=== PATIENT | female | born 1995 | race Caucasian/White ===

== ENCOUNTER 2018-09-15 12:27 | Emergency (ER) | payer BC ==
[~2018-09-15 12:27] MED LIST: ASPI1TAB17 PO; MEDR150D IM
[2018-09-15] MEDS ORDERED: NS(*) 0.9% 1000 ML BAG 1,000 ML IV ONE (12:39)
--- NOTE | 2018-09-15 12:39 | ER Report ---
History and Physical Time Seen By MD: 12:38 Hx. of Stated Complaint: abd pain HPI/ROS CHIEF COMPLAINT: Abdominal pain HISTORY OF PRESENT ILLNESS: 23-year-old female patient presents to emergency room with complaint of abdominal pain. Patient states this started approximately an hour and half prior to arrival. She states it began during intercourse with her significant other. She states the pain is in the "vagina bone". She states she did go to urgent care, was evaluated and referred to the emergency room due to patient needing to have imaging. Patient states she has had some nausea, but that his been normal for her. She denies any vomiting or diarrhea. Patient states that she did have the next been on placed, however did have a revision moved. She states that she has not taken anything to prevent since then. She states that they're not using any type of control. Patient denies any discharge, odor from the vagina. Patient states she is notanything seems to make the pain better or worse. REVIEW OF SYSTEMS: Respiratory: No cough, no dyspnea. Cardiovascular: No chest pain, no palpitations. Gastrointestinal: As noted above Musculoskeletal: No back pain. Allergies: Coded Allergies: No Known Drug Allergies (Unverified , 09/15/18) Home Meds Active Scripts Ondansetron 4 Mg Odt (ONDANSETRON 4 MG ODT) 4 Mg Tab.rapdis, 4 MG PO Q6H PRN for NAUSEA/VOMITING, #20 TAB Prov:ANT MCKINNEY [facility] 09/15/18 Hydrocodone Bit/Acetaminophen (HYDROCODON-ACETAMINOPHEN 5-325) 1 Each Tablet, 1 EACH PO Q4-6H PRN for PAIN, #12 TAB Prov:ANT MCKINNEY [facility] 09/15/18 Discontinued Reported Medications Aspirin/Sod Bicarb/Citric Acid (RICHARD-SELTZER ORIGINAL TAB EFF) 1 Each Tablet.eff, 1 EACH PO DAILY PRN for NAUSEA 07/07/15 Medroxyprogesterone Acet 150 Mg (DEPO-PROVERA 150 MG) 150 Mg/1 Ml Disp.syrin, 150 MG IM q3MO 07/07/15 Past Medical/Surgical History Patient has a past medical history of migraines, depression. Patient denies any surgical history. Reviewed Nurses Notes: Yes Hx Smoking: Yes Smoking Status: Current: Every Day Smoker, Light Tobacco Smoker Exposure to Second Hand Smoke?: No Constitutional Vital Sign - Last 24 Hours 09/15/18 09/15/18 09/15/18 09/15/18 12:35 12:36 13:00 14:00 Temp 97.9 Pulse 78 79 81 Resp 16 B/P (MAP) 121/86 (98) 121/86 118/85 (96) 106/77 (87) Pulse Ox 89 95 96 O2 Delivery Room Air Intake and Output 09/15/18 09/15/18 09/16/18 15:00 23:00 07:00 Intake Total 1000 ml Balance 1000 ml Physical Exam General Appearance: The patient is alert, has no immediate need for airway protection and no current signs of toxicity. Respiratory: Chest is non tender, lungs are clear to auscultation. Cardiac: regular rate and rhythm Gastrointestinal: Abdomen is soft and tender in the right upper quadrant as well as the suprapubic region, no masses, bowel sounds normal. Musculoskeletal: Neck: Neck is supple and non tender. Extremities have full range of motion and are non tender. Skin: No rashes or lesions. DIFFERENTIAL DIAGNOSIS: After history and physical exam differential diagnosis was considered for abdominal pain including but not limited to appendicitis, cholecystitis, gastritis and urinary tract infection. Included in the differential is ectopic , PID. Medical Decision Making Data Points Result Diagram: 09/15/18 1238 09/15/18 1238 Laboratory Hematology Test 09/15/18 12:32 09/15/18 12:38 09/15/18 13:06 Urine Color Yellow Urine Clarity Slightly-cloudy Urine pH 8.0 pH (4.8-9.5) Urine Specific [place] 1.019 Urine Protein Negative mg/dL (NEGATIVE) Urine Glucose (UA) Negative mg/dL (NEGATIVE) Urine Ketones Negative mg/dL (NEGATIVE) Urine Blood Negative (NEGATIVE) Urine Nitrite Negative (NEGATIVE) Urine Bilirubin Negative (NEGATIVE) Urine Urobilinogen Negative mg/dL (0.2-1.9) Urine Leukocyte Esterase Trace (NEGATIVE) Urine RBC 2 /HPF (0-2/HPF) Urine WBC 10 /HPF (0-5/HPF) Urine Squamous Epithelial Cells Many /LPF (</=FEW) Urine Bacteria Few /HPF (NONE-FEW) Urine Mucus Few /HPF (NONE-FEW) Red Blood Count 5.08 M/uL (4.17-5.56) Mean Corpuscular Volume 88.3 fL (80.0-96.0) Mean Corpuscular Hemoglobin 29.4 pg (26.0-33.0) Mean Corpuscular Hemoglobin Concent 33.3 g/dL (32.0-36.0) Red Cell Distribution Width 13.1 % (11.5-14.5) Mean Platelet Volume 8.6 fL (7.2-11.1) Neutrophils (%) (Auto) 62.5 % (39.4-72.5) Lymphocytes (%) (Auto) 28.7 % (17.6-49.6) Monocytes (%) (Auto) 7.1 % (4.1-12.4) Eosinophils (%) (Auto) 1.1 % (0.4-6.7) Basophils (%) (Auto) 0.6 % (0.3-1.4) Nucleated RBC Relative Count (auto) 0.0 /100WBC Neutrophils # (Auto) 5.5 K/uL (2.0-7.4) Lymphocytes # (Auto) 2.5 K/uL (1.3-3.6) Monocytes # (Auto) 0.6 K/uL (0.3-1.0) Eosinophils # (Auto) 0.1 K/uL (0.0-0.5) Basophils # (Auto) 0.1 K/uL (0.0-0.1) Nucleated RBC Absolute Count (auto) 0.00 K/uL Sodium Level 138 mmol/L (137-145) Potassium Level 3.9 mmol/L (3.5-5.0) Chloride Level 103 mmol/L (98-107) Carbon Dioxide Level 25 mmol/L (22-31) Blood Urea Nitrogen 10 mg/dl (7-18) Creatinine 0.70 mg/dl (0.52-1.04) Glomerular Filtration Rate Calc > 60.0 Random Glucose 94 mg/dl (75-110) Calcium Level 9.4 mg/dl (8.4-10.2) Total Bilirubin 1.4 mg/dl (0.2-1.3) Aspartate Amino Transf (AST/SGOT) 22 U/L (0-35) Alanine Aminotransferase (ALT/SGPT) 23 U/L (0-56) Alkaline Phosphatase 65 U/L (0-126) Total Protein 7.7 g/dl (6.3-8.2) Albumin 4.7 g/dl (3.5-5.0) Amylase Level 71 U/L (0-110) Lipase 99 U/L (23-300) Human Chorionic Gonadotropin, Qual Negative (NEGATIVE) Chemistry Test 09/15/18 12:32 09/15/18 12:38 09/15/18 13:06 Urine Color Yellow Urine Clarity Slightly-cloudy Urine pH 8.0 pH (4.8-9.5) Urine Specific [place] 1.019 Urine Protein Negative mg/dL (NEGATIVE) Urine Glucose (UA) Negative mg/dL (NEGATIVE) Urine Ketones Negative mg/dL (NEGATIVE) Urine Blood Negative (NEGATIVE) Urine Nitrite Negative (NEGATIVE) Urine Bilirubin Negative (NEGATIVE) Urine Urobilinogen Negative mg/dL (0.2-1.9) Urine Leukocyte Esterase Trace (NEGATIVE) Urine RBC 2 /HPF (0-2/HPF) Urine WBC 10 /HPF (0-5/HPF) Urine Squamous Epithelial Cells Many /LPF (</=FEW) Urine Bacteria Few /HPF (NONE-FEW) Urine Mucus Few /HPF (NONE-FEW) White Blood Count 8.9 k/uL (4.5-11.0) Red Blood Count 5.08 M/uL (4.17-5.56) Hemoglobin 14.9 g/dL (12.0-16.0) Hematocrit 44.9 % (34.0-47.0) Mean Corpuscular Volume 88.3 fL (80.0-96.0) Mean Corpuscular Hemoglobin 29.4 pg (26.0-33.0) Mean Corpuscular Hemoglobin Concent 33.3 g/dL (32.0-36.0) Red Cell Distribution Width 13.1 % (11.5-14.5) Platelet Count 335 K/uL (150-450) Mean Platelet Volume 8.6 fL (7.2-11.1) Neutrophils (%) (Auto) 62.5 % (39.4-72.5) Lymphocytes (%) (Auto) 28.7 % (17.6-49.6) Monocytes (%) (Auto) 7.1 % (4.1-12.4) Eosinophils (%) (Auto) 1.1 % (0.4-6.7) Basophils (%) (Auto) 0.6 % (0.3-1.4) Nucleated RBC Relative Count (auto) 0.0 /100WBC Neutrophils # (Auto) 5.5 K/uL (2.0-7.4) Lymphocytes # (Auto) 2.5 K/uL (1.3-3.6) Monocytes # (Auto) 0.6 K/uL (0.3-1.0) Eosinophils # (Auto) 0.1 K/uL (0.0-0.5) Basophils # (Auto) 0.1 K/uL (0.0-0.1) Nucleated RBC Absolute Count (auto) 0.00 K/uL Glomerular Filtration Rate Calc > 60.0 Calcium Level 9.4 mg/dl (8.4-10.2) Total Bilirubin 1.4 mg/dl (0.2-1.3) Aspartate Amino Transf (AST/SGOT) 22 U/L (0-35) Alanine Aminotransferase (ALT/SGPT) 23 U/L (0-56) Alkaline Phosphatase 65 U/L (0-126) Total Protein 7.7 g/dl (6.3-8.2) Albumin 4.7 g/dl (3.5-5.0) Amylase Level 71 U/L (0-110) Lipase 99 U/L (23-300) Human Chorionic Gonadotropin, Qual Negative (NEGATIVE) Urinalysis Test 09/15/18 12:32 Urine Color Yellow Urine Clarity Slightly-cloudy Urine pH 8.0 pH (4.8-9.5) Urine Specific [place] 1.019 Urine Protein Negative mg/dL (NEGATIVE) Urine Glucose (UA) Negative mg/dL (NEGATIVE) Urine Ketones Negative mg/dL (NEGATIVE) Urine Blood Negative (NEGATIVE) Urine Nitrite Negative (NEGATIVE) Urine Bilirubin Negative (NEGATIVE) Urine Urobilinogen Negative mg/dL (0.2-1.9) Urine Leukocyte Esterase Trace (NEGATIVE) Urine RBC 2 /HPF (0-2/HPF) Urine WBC 10 /HPF (0-5/HPF) Urine Squamous Epithelial Cells Many /LPF (</=FEW) Urine Bacteria Few /HPF (NONE-FEW) Urine Mucus Few /HPF (NONE-FEW) Microbiology Microbiology Date/Time Source Procedure Growth Status 09/15/18 13:06 Cervical Wet Prep - Final Complete EKG/Imaging Imaging CT ABDOMEN PELVIS W/ CON COMPARISON: None. HISTORY: Right lower quadrant abdominal pain for 3 hours. TECHNIQUE: Axial CT abdomen and pelvis with intravenous contrast. Coronal and sagittal reformats. One of the following dose optimization techniques was utilized in the performance of this exam: automated exposure control; adjustment of the mA and/or kV according to patient size; or use of iterative reconstruction technique. Specific details can be referenced in the facility's radiology CT exam operational policy. CONTRAST: 75 mL of IV Isovue-370. FINDINGS: LUNG BASES: Negative. LIVER: Small region of low density in the liver adjacent to the falciform ligament characteristic in location for perfusional variation versus focal fat deposition. Otherwise unremarkable liver. BILIARY: Negative. SPLEEN: Negative. PANCREAS: Negative. ADRENALS: Negative. KIDNEYS: Negative. Symmetric enhancement without appreciable stones and no evidence of hydronephrosis or pyelonephritis. GI/MESENTERY: Negative. Small appendix without evidence of acute appendicitis. No bowel wall thickening, mass or obstruction. VASCULAR: Negative. LYMPH NODES: Negative. BLADDER: Negative. PELVIC ORGANS: Normal left ovary and uterus. The uterus is deviated towards the left by the enlarged right ovary, overall measuring 3.7 x 6.4 cm including a unilocular cyst measuring 3.4 x 2.7 cm. Small amount of free fluid in the cul-de-sac and adnexa. BONES: Negative. OTHER: Negative. IMPRESSION: 1. No acute bowel pathology. Normal appendix. 2. Enlarged right ovary containing a 3.4 cm cyst. Small amount of free fluid in the right adnexa and cul-de-sac. Report Dictated By: Nick Gamez at 09/15/2018 2:10 PM Report E-Signed By: Nick Gamez at 09/15/2018 2:14 PM ED Course/Re-evaluation ED Course Patient was admitted on exam room, history and physical were obtained. Differential diagnoses were considered. On exam lungs are clear, heart is regular, abdomen is soft in the right upper quadrant, suprapubic region. A pelvic exam was done as described below. An IV was started, a CBC, CMP, urinalysis, hCG were done. Lab results were unremarkable. A wet prep and a CT/GC were done. Blood prep showed large number of white blood cells. A CT scan of the abdomen and pelvis was done secondary to the abdominal pain in the right upper quadrant as well as the suprapubic region. It did show a large right ovarian cyst that is putting pressure on the uterus to the right. The pelvic exam did show some cervical motion tenderness, I believe that is likely secondary to the ovarian cyst which is causing displacement of the uterus. We will go ahead and discharge patient home at this time. She is to take Lantus supply of pain medication to help with pain, she states some Zofran as needed for nausea. She is to follow-up with her operations leader in the next 4-5 days. She is to return to emergency room if condition worsens. Patient verbalized understanding plan. Pelvic exam: The vulva was normal no lesions. The vagina did not have significant discharge. The cervix was closed no bleeding but did have a small amount of drainage. The uterus was normal size and tender. The adnexa had no masses and right sided tenderness. The exam was performed with a manager distribution. Decision to Disposition Date: September 15, 2018 Decision to Disposition Time: 14:31 Depart Departure Latest Vital Signs Vital Signs Date Time Temp Pulse Resp B/P (MAP) Pulse Ox O2 Delivery O2 Flow Rate FiO2 09/15/18 14:00 81 106/77 (87) 96 09/15/18 12:36 97.9 16 Room Air Impression: Primary Impression: Ovarian cyst Condition: Improved Disposition: HOME OR SELF-CARE New Scripts Ondansetron 4 Mg Odt (ONDANSETRON 4 MG ODT) 4 Mg Tab.rapdis 4 MG PO Q6H PRN for NAUSEA/VOMITING, #20 TAB Prov: ANT MCKINNEY 09/15/18 Hydrocodone Bit/Acetaminophen (HYDROCODON-ACETAMINOPHEN 5-325) 1 Each Tablet 1 EACH PO Q4-6H PRN for PAIN, #12 TAB Prov: ANT MCKINNEY 09/15/18 Patient Instructions: Ovarian Cyst (ED) Additional Instructions: Limit activity by pain. Increase fluid intake. Follow up with your operations leader in the next week. Return to the ER if condition worsens. Take the medication as prescribed. Problem Qualifiers Primary Impression: Ovarian cyst Laterality: right Qualified Codes: N83.201 - Unspecified ovarian cyst, right side ANT MCKINNEY September 15, 2018 12:38
[2018-09-15] MEDS ORDERED: ONDANSETRON 4 MG/2 ML VIAL IVP ONE (12:50)
[2018-09-15] MEDS ORDERED: MORPHINE 4 MG/ML SDV IVP ONE ×2 (12:50→13:40)
[2018-09-15 12:53] LABS: PLATELET COUNT, AUTOMATED 335 K/uL (150-450)
[2018-09-15] MEDS ORDERED: IOPAMIDOL 76% 100 ML INFUS BTL 100 ML ONE (13:29)
[2018-09-15 14:00] VITALS: BP 106/77
--- NOTE | 2018-09-15 14:19 | RADIOLOGY IMAGING REPORT ---
FACILITY: [facility] PATIENT NAME: Lexy Jackson : 1995 MR: [id number] V: [id number] EXAM DATE: ORDERING PHYSICIAN: ANT MCKINNEY TECHNOLOGIST: Location: [facility] [place] Patient: Lexy Jackson : 1995 Visit/Account:[id number] Date of Sevice: 09/15/2018 CT ABDOMEN PELVIS W/ CON COMPARISON: None. HISTORY: Right lower quadrant abdominal pain for 3 hours. TECHNIQUE: Axial CT abdomen and pelvis with intravenous contrast. Coronal and sagittal reformats. O ne of the following dose optimization techniques was utilized in the performance of this exam: autom ated exposure control; adjustment of the mA and/or kV according to patient size; or use of iterative reconstruction technique. Specific details can be referenced in the facility's radiology CT exam ope rational policy. CONTRAST: 75 mL of IV Isovue-370. FINDINGS: LUNG BASES: Negative. LIVER: Small region of low density in the liver adjacent to the falciform ligament characteristic in location for perfusional variation versus focal fat deposition. Otherwise unremarkable liver. BILIARY: Negative. SPLEEN: Negative. PANCREAS: Negative. ADRENALS: Negative. KIDNEYS: Negative. Symmetric enhancement without appreciable stones and no evidence of hydronephrosi s or pyelonephritis. GI/MESENTERY: Negative. Small appendix without evidence of acute appendicitis. No bowel wall thicken ing, mass or obstruction. VASCULAR: Negative. LYMPH NODES: Negative. BLADDER: Negative. PELVIC ORGANS: Normal left ovary and uterus. The uterus is deviated towards the left by the enlarged right ovary, overall measuring 3.7 x 6.4 cm including a unilocular cyst measuring 3.4 x 2.7 cm. Smal l amount of free fluid in the cul-de-sac and adnexa. BONES: Negative. OTHER: Negative. IMPRESSION: 1. No acute bowel pathology. Normal appendix. 2. Enlarged right ovary containing a 3.4 cm cyst. Small amount of free fluid in the right adnexa and cul-de-sac. Report Dictated By: Nick Gamez at 09/15/2018 2:10 PM Report E-Signed By: Nick Gamez at 09/15/2018 2:14 PM WSN:[id number]
[2018-09-15] MEDS ORDERED: ONDA4TAB9 PO ×2 (14:32→14:46)
[2018-09-15] MEDS ORDERED: HYDR-385 PO ×2 (14:32→14:46)
== END 2018-09-15 14:45 | disposition home or self-care (01) ==
LOC: ER 12:33
DX: N83.201 Unspecified ovarian cyst, right side (principal)
CPT/HCPCS: 74177; 81001; 82150; 83690; 84703; 85025; 87210; 87491; 87591; 96361; 96374; 96375; 96376; 99284; J2270; J2405; J7030; Q9967; 82040; 82247; 82310; 82374; 82435; 82565; 82947; 84075; 84132; 84155; 84295; 84450; 84460; 84520